=== PATIENT | female | born 1950 | race Caucasian/White ===

== ENCOUNTER 2021-06-22 17:26 | Emergency (ER) | payer MEDICARE ==
[~2021-06-22] VITALS: Ht 162.6 cm; Wt 106.3 kg
[2021-06-22 18:15] VITALS: BP 168/72
--- NOTE | 2021-06-22 18:39 | PHYS DOC ---
Past Medical History Additional Past Medical Histor: RA Past Surgical History: Cholecystectomy, Hysterectomy, Knee Replacement, Other Additional Past Surgical Histo: R foot fusion X 2 and L foot surgery Smoking Status: Never Smoker Alcohol Use: None General Adult EDM: Chief Complaint: LOWER EXT PAIN HPI: HPI: 70 yo F PMH rhuematoid arthritis, presents to the ed with her , (patient consents to his/her/their knowledge and involvement in pts' medical care), by pcp office regarding results of duplex venous lower extremity ultrasound performed today that showed calf DVT involving one of the peroneal veins in the proximal mid right calf. Patient reports she starts her rheumatoid arthritis meds on Sunday. H/o right foot surgery (2nd/3rd metatarsal fusion) 04/26 with [facility], who ordered the dvt study and referred pt to the ed for treatment. Reports no prior history of DVT. No associated chest pain, back pain, hemoptysis, dyspnea, paresthesia, weakness, sensation loss, difficulties walking or syncope. States she complained of her calf muscle feeling more tense and tight than normal, cannot appreciated increased swelling. Ambulates with a cam boot and is weightbearing. Review of Systems: Review of Systems: Constitutional: Denies fever or chills. [] Eyes: Denies change in visual acuity. [] HENT: Denies nasal congestion or sore throat. [] Respiratory: Denies cough or shortness of breath. [] Cardiovascular: Denies chest pain or edema. [] GI: Denies nausea or vomiting : Denies dysuria or hematuria Musculoskeletal: Denies back pain or joint pain. [] Integument: Denies rash or diaphoresis Neurologic: Denies headache, focal weakness or sensory changes. [] Endocrine: Denies polyuria or polydipsia. [] Lymphatic: Denies swollen glands. [] Psychiatric: Denies depression or anxiety. [] Heart Score: C/O Chest Pain: No Risk Factors: Risk Factors: DM, Current or recent (<one month) smoker, HTN, HLP, family history of CAD, obesity. Risk Scores: Score 0 - 3: 2.5% MACE over next 6 weeks - Discharge Home Score 4 - 6: 20.3% MACE over next 6 weeks - Admit for Clinical Observation Score 7 - 10: 72.7% MACE over next 6 weeks - Early Invasive Strategies Allergies: Allergies: Allergies Coded Allergies Type Severity Reaction Last Updated Verified morphine Allergy Intermediate Hives 06/22/21 Yes Physical Exam: PE: Constitutional: Well developed, well nourished, no acute distress, non-toxic appearance. HENT: Normocephalic, atraumatic, Eyes: EOMI, conjunctiva normal, no discharge. Neck: Normal range of motion, supple, Cardiovascular: S1/2 present, regular rhythm Lungs & Thorax: Speaking in full sentences, bilateral equal chest rise, no tachypnea or increased work of breathing Skin: Warm, dry, no erythema, no rash. [] [] Extremities: no cyanosis, cannot appreciate RLE being more swollen than LLE, intact dp/pt pulses, L5/S1 sensation intact, ambulates with cam boot Neurologic: Alert and oriented X 3, normal motor function, normal sensory function, no focal deficits noted. [] Psychologic: Affect normal, judgement normal, mood normal. [] Current Patient Data: Vital Signs: Vital Signs Date Time Temp Pulse Resp B/P (MAP) Pulse Ox O2 Delivery O2 Flow Rate FiO2 06/22/21 18:15 98.4 88 18 168/72 (104) 97 Room Air 98.4 EKG: EKG: [] Radiology/Procedures: Radiology/Procedures: IMAGING REPORT Signed PATIENT: PRISCILLA FLAHERTY ACCOUNT: [id number] : 1950 LOCATION: US AGE: 70 SEX: F EXAM STATUS: REG CLI ORD. PHYSICIAN: NON,STAFF REASON: PROCEDURE: VENOUS LOWER EXTREMITY RIGHT Right lower extremity venous duplex study 06/22/2021 Clinical History: Right lower calf pain and swelling. Technique: Using a combination of real time ultrasound imaging and color-flow and pulse Doppler imaging techniques along with graded compression and augmentation, duplex evaluation of the deep venous system of the right lower extremity was performed. Multiple images were obtained. Findings: Echogenic thrombus seen involving one of the peroneal veins within the proximal/mid right calf. The other peroneal vein and right posterior tibial veins are patent. The right popliteal, superficial femoral and right common femoral vein are patent. IMPRESSION: Findings consistent with calf DVT involving one of the peroneal veins within the proximal/mid right calf. Electronically signed by: Kevan Gonzalez MD (06/22/2021 5:26 PM) [id number] DICTATED and SIGNED BY: KEVAN GONZALEZ MD DATE: 06/22/21 [id number] 0 Course & Med Decision Making: Course & Med Decision Making Pertinent Labs and Imaging studies reviewed. (See chart for details) Concern for postoperative distal right lower extremity DVT in a well-appearing patient. Patient is not tachycardic with no hypoxia. Has no respiratory, back or chest discomfort. No prior history of DVT. Creatinine clearance of 49- reports her sports administrator watches her renal function closely. Will prescribe Xarelto and referred to primary care physician in the next 2 to 3 days. Will discharge home with strict ED return precautions were given for worsening leg swelling, skin color changes, chest pain, hemoptysis, dyspnea or back pain. Encouraged urgent outpatient follow-up with PMD. Life-threatening processes were considered but are low suspicion at this time, given history, physical exam and ED workup. Pt was educated on all prescription medications and adverse effects. All patient's questions were answered and pt was stable at time of discharge. Life/limb-threatening differential includes but is not limited to, trauma (fracture, dislocation, laceration, compartment syndrome, tendon or ligament injury), neurovascular injury or deficitcva/tia, infection (osteomyelitis, abscess, cellulitis, septic arthritis, necrotizing fasciitis), deep vein thrombosis, renal/cardiac/liver disease, medication adverse effect, lymphedema /anasarca, vascular insufficiency or malignancy, I have spoken with the patient and/or caregivers. I explained the patient's c ondition, diagnoses and treatment plan based on the information available to me at this time. I have answered the patient and/or caregiver's questions and addressed any concerns. The patient and/or caregivers have a good understanding of patient's diagnosis, condition and treatment plan as can be expected at this point. Vital signs have been stable. Patient's condition is stable and appropriate for discharge from the emergency department. Patient will pursue further outpatient evaluation with primary care physician or other designated or consulting physician as outlined in the discharge instructions. The patient and/or caregivers are agreeable to this plan of care and follow-up instructions have been explained in detail. The patient and/or caregivers have received these instructions in written form and have expressed an understanding of the discharge instructions. The patient and/or caregivers are aware that any significant change of condition or worsening of symptoms should prompt immediate return to this or the closest emergency department or call to [phone]. Osman Disclaimer: Osman Disclaimer: This electronic medical record was generated, in whole or in part, using a voice recognition dictation system. Departure Departure Impression: Primary Impression: Deep vein thrombosis of distal vein of right lower extremity Additional Impression: Renal insufficiency Disposition: 01 HOME / SELF CARE / HOMELESS Condition: STABLE Referrals: LUIS ALBERTO NEAL MD (PCP) in 2-3 days for re-evaluation, your creatinine today was 1.1, bun was 30 and gfr was 49.2 Patient Instructions: Deep Vein Thrombosis Additional Instructions: EMERGENCY DEPARTMENT GENERAL DISCHARGE INSTRUCTIONS Thank you for coming to [facility] Emergency Department (ED) today and trusting us with you care. We trust that you had a positive experience in our Emergency Department. If you wish to speak to the department management, you may call the Director at [phone]. YOUR FOLLOW UP INSTRUCTIONS ARE FOLLOWS: 1. Do you have a private Doctor? If you do not have a private doctor, please ask for a resource list of physicians or clinics that may be able to assist you with follow up care. 2. The Emergency Physicain has interpreted your x-rays. The X-Ray specialist will also review them. If there is a change in the findings, you will be notified in 48 hours when at all possible. 3. A lab test or culture has been done, your results will be reviewed and you will be notified if you need a change in treatment. ADDITIONAL INSTRUCTIONS AND INFORMATION: 1. Your care today has been supervised by a physician who is specially trained in emergency care. Many problems require more than one evaluation for a complete diagnosis and treatment. We recommend that you schedule your follow up appointment as recommended to ensure complete treatment of you illness or injury. If you are unable to obtain follow up care and continue to have a problem, or if your condition worsens, we recommend that you return to the ED. 2. We are not able to safely determine your condition over the phone nor are we able to give sound medical advice over the phone. For these safety reasons, if you call for medical advice we will ask you to come to the ED for further evaluation. 3. If you have any questions regarding these discharge instructions please call the ED at [phone]. SAFETY INFORMATION: In the interest of safety, wellness, and injury prevention; we encourage you to wear your sealbelt, if you smoke; quite smoking, and we encourage family to use a pro tective helmet for bicycling and other sporting events that present an increased risk for head injury. IF YOUR SYMPTOMS WORSEN OR NEW SYMPTOMS DEVELOP, OR YOU HAVE CONCERNS ABOUT YOUR CONDITION; OR IF YOUR CONDITION WORSENS WHILE YOU ARE WAITING FOR YOUR FOLLOW UP APPOINTMENT; EITHER CONTACT YOUR PRIMARY CARE DOCTOR, THE PHYSICIAN WHOSE NAME AND NUMBER YOU WERE GIVEN, OR RETURN TO THE ED IMMEDIATELY. Scripts Rivaroxaban (XARELTO) 15 Mg Tablet 1 TAB PO BID for 21 Days, #42 TAB 0 Refills Prov: CHAPITO NOONAN DO 06/22/21 CHAPITO NOONAN DO Jun 22, 2021 18:39
[2021-06-22 18:45] LABS: BASO # 0.1 x10^3/uL (0.0-0.2); BASO % 1 % (0-3); EOS # 0.2 x10^3/uL (0.0-0.7); EOS % 2 % (0-3); HEMATOCRIT 40.5 % (36.0-47.0); HEMOGLOBIN 13.2 g/dL (12.0-15.5); LYMPH # 1.8 x10^3/uL (1.0-4.8); LYMPH % 22 % (24-48); MEAN CORPUSCULAR HEMOGLOBIN 29 pg (25-35); MEAN CORPUSCULAR HGB CONC 33 g/dL (31-37); MEAN CORPUSCULAR VOLUME 89 fL (79-100); MONO # 0.9 x10^3/uL (0.0-1.1); MONO % 11 % (0-9); NEUT # 5.1 x10^3/uL (1.8-7.7); NEUT % 64 % (31-73); PLATELET COUNT 288 x10^3/uL (140-400); RED BLOOD COUNT 4.54 x10^6/uL (3.50-5.40); RED CELL DISTRIBUTION WIDTH 14.5 % (11.5-14.5)
[2021-06-22 19:02] LABS: CALCIUM 8.6 mg/dL (8.5-10.1); CREATININE 1.1 mg/dL (0.6-1.0); GFR 49.2; POTASSIUM 3.8 mmol/L (3.5-5.1)
[2021-06-22 19:09] LABS: ALBUMIN 3.4 g/dL (3.4-5.0); ALBUMIN/GLOBULIN RATIO 0.9 (1.0-1.7); TOTAL BILIRUBIN 0.2 mg/dL (0.2-1.0)
[2021-06-22] MEDS ORDERED: RIVA15TA PO (20:13)
== END 2021-06-22 20:20 | disposition home or self-care (01) ==
LOC: ER 17:26
DX: I82.4Z1 Acute embolism and thrombosis of unspecified deep veins of right distal lower extremity (principal); N28.9 Disorder of kidney and ureter, unspecified; M06.9 Rheumatoid arthritis, unspecified; Z90.710 Acquired absence of both cervix and uterus; Z90.49 Acquired absence of other specified parts of digestive tract; Z88.5 Allergy status to narcotic agent
CPT/HCPCS: 36415; 80053; 85025; 99283

== ENCOUNTER → 2021-06-22 | Outpatient (CLI) | payer MEDICARE ==
[~2021-06-22] MED LIST: RIVA15TA PO
--- NOTE | 2021-06-22 17:29 | RAD ---
Right lower extremity venous duplex study 06/22/2021 Clinical History: Right lower calf pain and swelling. Technique: Using a combination of real time ultrasound imaging and color-flow and pulse Doppler imagi ng techniques along with graded compression and augmentation, duplex evaluation of the deep venous sy stem of the right lower extremity was performed. Multiple images were obtained. Findings: Echogenic thrombus seen involving one of the peroneal veins within the proximal/mid right c elvis. The other peroneal vein and right posterior tibial veins are patent. The right popliteal, superf icial femoral and right common femoral vein are patent. IMPRESSION: Findings consistent with calf DVT involving one of the peroneal veins within the proximal /mid right calf. Electronically signed by: Kevan Gonzalez MD (06/22/2021 5:26 PM) [id number]
== END ==
LOC: US 16:00
PROVIDERS: ATTEND Orthopaedic Surgery Foot and Ankle Surgery
DX: M79.661 Pain in right lower leg (principal); M79.89 Other specified soft tissue disorders
CPT/HCPCS: 93971